=== PATIENT | male | born 1980 | race Caucasian/White ===

== ENCOUNTER 2017-07-30 23:08 | Emergency (ER) | payer MEDICAID ==
[~2017-07-30] VITALS: Ht 175.3 cm; Wt 90.7 kg
[~2017-07-30 23:08] MED LIST: IBUP800T25 PO; METF500T PO; METF500T4 PO
[2017-07-30 23:11] VITALS: Ht 175.3 cm; Wt 90.7 kg
[2017-07-30] MEDS ORDERED: INSULIN LISPRO 100 UNIT/ML VIAL SC ONE (23:36)
[2017-07-30] MEDS ORDERED: ONDANSETRON 4 MG INJ IV ONE (23:36)
--- NOTE | 2017-07-30 23:40 | ERD ---
ER Documentation Chief Complaint Chief Complaint hi fingersticks x a week,on oral hypoglycemics,blurry vision now HPI 36-year-old man with a long history of poorly controlled diabetes secondary to medication noncompliance presents with headache, dizziness, blurry vision, and hyperglycemia for about 1 week. He states he has been using his Metformin recently as prescribed. He suspects his hyperglycemia got worse after Thanksgiving meal. He denies diarrhea, no fevers or chills. No complaints of chest pain or shortness of breath. ROS All systems reviewed and are negative except as per history of present illness. Medications Home Meds Active Scripts Ibuprofen* (Motrin*) 800 Mg Tab, 800 MG PO Q8 Y for PAIN AND OR ELEVATED TEMP, # 30 TAB Prov:CARLOS HOWARD NP 02/22/16 Metformin Hcl (Glucophage) 500 Mg Tablet, 500 MG PO BID, #60 TAB 1 Refill Prov:MARYANN LUCIO MD 03/26/15 Metformin* (Glucophage*) 500 Mg Tab, 500 MG PO BID, #60 TAB 2 Refills Prov:MARK JULIEN MD 02/20/15 Allergies Allergies: Coded Allergies: No Known Allergy (Unverified , 02/20/15) PMhx/Soc Diabetes mellitus History of Surgery: No Anesthesia Reaction: No Hx Neurological Disorder: No Hx Respiratory Disorders: No Hx Cardiac Disorders: Yes (HTN) Hx Psychiatric Problems: No Hx Miscellaneous Medical Probl: Yes (DM HIGH CHOLESTEROL) Hx Alcohol Use: No Hx Substance Use: No Hx Tobacco Use: No FmHx Family History: No diabetes Physical Exam Vitals Vital Signs Date Time Temp Pulse Resp B/P Pulse Ox O2 Delivery O2 Flow Rate FiO2 07/30/17 23:11 95.5 88 20 143/89 98 Physical Exam GENERAL: Well-developed, well-nourished, well-hydrated, in no apparent distress , looks nontoxic in appearance HEENT: Moist mucous membranes, pink conjunctiva, no cervical spine tenderness or step-off deformities, no goiter, no jaundice or icterus, extraocular movements intact without pain. No submandibular induration, and no pharyngeal erythema NEURO: Alert and oriented 3, cranial nerves II through XII intact bilaterally, pupils equal round reactive to light, no focal deficits or facial asymmetry, sensation intact distally Strength 5/5 in upper and lower extremities bilaterally CARDIAC: Regular rate and rhythm, no murmurs rubs or gallops LUNGS: Clear bilaterally no wheezing crackles or stridor ABDOMEN: Soft nontender, no guarding, no rigidity, no rebound, no psoas sign no obturator sign. Normoactive bowel sounds SKIN: Warm and dry to touch, no abrasions, contusions, or hematomas, no lacerations, no ecchymosis, no target lesions, and without ulcers EXTREMITIES: No clubbing cyanosis or edema, calves are bilaterally symmetrical, no Homans sign, no popliteal cord sign. Distal pulses equal and bilateral PSYCH: Normal affect without agitation or irritability Result Diagram: 07/30/17 2341 07/30/17 2341 Results 24 hrs Laboratory Tests Test 07/30/17 23:16 07/30/17 23:41 07/30/17 23:44 07/31/17 01:18 Bedside Glucose 396mg/dL 309mg/dL White Blood Count 7.710^3/ul Red Blood Count 4.8510^6/ul Hemoglobin 14.7g/dl Hematocrit 40.9% Mean Corpuscular Volume 84.3fl Mean Corpuscular Hemoglobin 30.3pg Mean Corpuscular Hemoglobin Concent 35.9g/dl Red Cell Distribution Width 13.2% Platelet Count 91587^3/UL Mean Platelet Volume 13.1fl Neutrophils % 54.4% Lymphocytes % 35.8% Monocytes % 6.7% Eosinophils % 2.2% Basophils % 0.6% Nucleated Red Blood Cells % 0.0/100WBC Neutrophils # 4.210^3/ul Lymphocytes # 2.810^3/ul Monocytes # 0.510^3/ul Eosinophils # 0.210^3/ul Basophils # 0.110^3/ul Nucleated Red Blood Cells # 0.010^3/ul Sodium Level 137mmol/L Potassium Level 4.4mmol/L Chloride Level 98mmol/L Carbon Dioxide Level 22mmol/L Anion Gap 21 Blood Urea Nitrogen 15mg/dl Creatinine 0.92mg/dl Glucose Level 385mg/dl Calcium Level 9.8mg/dl Total Bilirubin 0.4mg/dl Direct Bilirubin 0.00mg/dl Indirect Bilirubin 0.4mg/dl Aspartate Amino Transf (AST/SGOT) 96IU/L Alanine Aminotransferase (ALT/SGPT) 206IU/L Alkaline Phosphatase 107IU/L Total Protein 8.3g/dl Albumin 4.6g/dl Globulin 3.70g/dl Albumin/Globulin Ratio 1.24 Lipase 232U/L Bedside Urine pH (LAB) 5.0 Bedside Urine Protein (LAB) Negative Bedside Urine Glucose (UA) 0.50% Bedside Urine Ketones (LAB) Negative Bedside Urine Blood Negative Bedside Urine Nitrite (LAB) Negative Bedside Urine Leukocyte Esterase (L Negative Current Medications Medications (Trade) Dose Ordered Sig/Clara Route PRN Reason Start Time Stop Time Status Last Admin Dose Admin Insulin Human Lispro 10 unit 10 unit ONCE ONCE SC 07/30/17 23:36 07/30/17 23:37 DC 07/31/17 00:03 Lactated Ringer's (Lr) 1,000 ml @ 2,000 mls/hr Q30M ONCE IV 07/31/17 00:00 07/31/17 00:29 DC 07/30/17 23:58 Ondansetron HCl (Zofran Inj) 4 mg ONCE ONCE IV 07/30/17 23:36 07/30/17 23:37 DC 07/31/17 00:00 Procedures/[facility] IV line was established 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 Patient was afebrile I administered 2 L of lactated Ringer's IV and lispro insulin 10 units subcutaneous injection 1, Zofran 4 mg IV 1 for nausea. CBC and electrolytes are normal, liver function tests are normal, lipase was normal. Blood sugar came down, bicarb was normal I do not suspect DKA. Patient had no complaints after medical management here in the ED. 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 I also told him he may be suffering from diabetic retinopathy and may require the medical management of an neon sign mechanic. Visual acuity will be deferred to his neon sign mechanic. Differential diagnoses considered, included but not limited to acute coronary syndrome, pulmonary embolism, aortic dissection, abdominal aortic aneurysm, sepsis, stroke, meningitis, encephalitis, pneumonia, appendicitis, cholecystitis , bowel obstruction, pyelonephritis, nephrolithiasis, cystitis, as well as metabolic, hematologic, and electrolyte abnormalities. As well as abscess, cellulitis, fractures, and dislocations. Patient feels much better at this time, and vital signs are normal, symptoms have improved. I did give strict instructions to return to the ED if symptoms continue or worsen, patient will otherwise follow-up with primary care physician. Patient understood instructions and agreed to plan. Disclaimer: Inadvertent spelling and grammatical errors are likely due to EHR/ dictation software use and do not reflect on the overall quality of patient care. Also, please note that the electronic time recorded on this note does not necessarily reflect the actual time of the patient encounter. Departure Diagnosis: Primary Impression: Hyperglycemia Additional Impression: Diabetic retinopathy Diabetes mellitus type: type 2 Diabetic retinopathy severity: with unspecified retinopathy severity Diabetes mellitus macular edema: macular edema presence unspecified Laterality: bilateral Qualified Code: E11.319 - Diabetic retinopathy of both eyes associated with type 2 diabetes mellitus, macular edema presence unspecified, unspecified retinopathy severity Condition: MARK Benavides MD Jul 30, 2017 23:40
[2017-07-30 23:45] LABS: URINE BLOOD (Dip) POC Negative (NEGATIVE)
[2017-07-31] MEDS ORDERED: LACTATED RINGER'S 1,000 ML IV ONE
[2017-07-31 00:36] LABS: ALBUMIN 4.6 g/dl (3.3-4.9); ALBUMIN/GLOBULIN RATIO 1.24; BILIRUBIN,INDIRECT 0.4 mg/dl (0-1.1); BILIRUBIN,TOTAL 0.4 mg/dl (0.2-1.3); CALCIUM 9.8 mg/dl (8.4-10.2); CREATININE 0.92 mg/dl (0.61-1.24); POTASSIUM 4.4 mmol/L (3.5-5.1); TOTAL PROTEIN 8.3 g/dl (6.1-8.1)
[2017-07-31 01:41] LABS: ABNORMAL IP MESSAGE 1; BASOPHIL # 0.1 10^3/ul (0.0-0.1); BASOPHILS % 0.6 % (0.0-2.0); EOSINOPHILS # 0.2 10^3/ul (0.0-0.5); EOSINOPHILS % 2.2 % (0.0-7.0); HEMATOCRIT 40.9 % (42.0-52.0); HEMOGLOBIN 14.7 g/dl (14.0-18.0); LYMPHOCYTES # 2.8 10^3/ul (0.8-2.9); LYMPHOCYTES % 35.8 % (15.0-51.0); MEAN CORPUSCULAR HEMOGLOBIN 30.3 pg (29.0-33.0); MEAN CORPUSCULAR HGB CONC 35.9 g/dl (32.0-37.0); MEAN CORPUSCULAR VOLUME 84.3 fl (82.0-101.0); MEAN PLATELET VOLUME 13.1 fl (7.4-10.4); MONOCYTE # 0.5 10^3/ul (0.3-0.9); MONOCYTES % 6.7 % (0.0-11.0); NEUTROPHIL # 4.2 10^3/ul (1.6-7.5); NEUTROPHILS % 54.4 % (39.0-77.0); PLATELET COUNT 232 10^3/UL (140-415); POSITIVE DIFF @See below; RED BLOOD COUNT 4.85 10^6/ul (4.70-6.10); RED CELL DISTRIBUTION WIDTH 13.2 % (11.5-14.5); WHITE BLOOD COUNT 7.7 10^3/ul (4.8-10.8)
[2017-07-31 02:00] VITALS: BP 108/81; PULSE 89; RESP 20; TEMP 98.2
== END 2017-07-31 02:26 | disposition home or self-care (01) ==
LOC: E/R 23:08
DX: E11.319 Type 2 diabetes mellitus with unspecified diabetic retinopathy without macular edema (principal); I10 Essential (primary) hypertension; Z79.84 Long term (current) use of oral hypoglycemic drugs
CPT/HCPCS: 36415; 80053; 81003; 82962; 83690; 85025; 96372; 96374; J1815; J2405; J7120; Z7502